=== PATIENT | male | born 1975 | race Caucasian/White ===

== ENCOUNTER 2017-01-21 07:27 | Emergency (ER) | payer SELFPAY ==
[~2017-01-21] VITALS: Ht 175.3 cm; Wt 122.5 kg
[2017-01-21 07:43] VITALS: BP 188/114
[2017-01-21 07:44] LABS: BILIRUBIN,URINE NEGATIVE (NEG); GLUCOSE,URINE 100 mg/dL (NEG); NITRITE,URINE NEGATIVE (NEG); PROTEIN,URINE 100 mg/dL (NEG-TRACE); UROBILINOGEN,URINE 0.2 mg/dL (0.2 mg/dL)
[2017-01-21] MEDS ORDERED: IV NORMAL SALINE 1000ML BAG 1,000 ML IV ONE (07:45)
[2017-01-21] MEDS ORDERED: HYDROmorphone 2 MG/ML VIAL IV ONE (07:45)
[2017-01-21] MEDS ORDERED: ONDANSETRON PF 4 MG/2 ML VIAL. IV ONE ×2 (07:45→08:45)
--- NOTE | 2017-01-21 07:46 | PHYS DOC ---
Adult General Chief Complaint Chief Complaint: FLANK PAIN HPI HPI Patient is a 41 year old male with history of kidney stones who presents today with 15 out of 10 left flank pain that began yesterday. Patient is also complaining of nausea and vomiting since this morning. Patient denies any hematuria. Patient denies any fever. He states he normally follows up with his own doctor in [facility]. Review of Systems Review of Systems Constitutional: Denies fever or chills [] Eyes: Denies change in visual acuity, redness, or eye pain [] HENT: Denies nasal congestion or sore throat [] Respiratory: Denies cough or shortness of breath [] Cardiovascular: No additional information not addressed in HPI [] GI: Denies abdominal pain, nausea, vomiting, bloody stools or diarrhea [] : left flank pain Musculoskeletal: Denies back pain or joint pain [] Integument: Denies rash or skin lesions [] Neurologic: Denies headache, focal weakness or sensory changes [] Endocrine: Denies polyuria or polydipsia [] Current Medications Current Medications Current Medications Medications (Trade) Dose Ordered Sig/Fanny Start Time Stop Time Status Last Admin Dose Admin Hydromorphone HCl (Dilaudid) 2 mg 1X ONCE 01/21/17 07:45 01/21/17 07:50 DC 01/21/17 07:54 2 MG Ketorolac Tromethamine (Toradol) 30 mg 1X ONCE 01/21/17 08:45 01/21/17 08:46 DC 01/21/17 08:52 30 MG Ondansetron HCl (Zofran) 4 mg 1X ONCE 01/21/17 08:45 01/21/17 08:46 DC 01/21/17 08:56 4 MG Prochlorperazine Edisylate (Compazine) 10 mg 1X ONCE 01/21/17 08:45 01/21/17 08:46 DC 01/21/17 08:51 10 MG Sodium Chloride 1,000 ml @ 1,000 mls/hr 1X ONCE 01/21/17 07:45 01/21/17 08:44 DC 01/21/17 07:45 1,000 MLS/HR Tamsulosin HCl (Flomax) 0.4 mg 1X ONCE 01/21/17 08:45 01/21/17 08:46 DC 01/21/17 08:52 0.4 MG Allergies Allergies Allergies Coded Allergies Type Severity Reaction Last Updated Verified No Known Drug Allergies 01/21/17 No Physical Exam Physical Exam Constitutional: Well developed, well nourished, no acute distress, non-toxic appearance. [] HENT: Normocephalic, atraumatic, bilateral external ears normal, oropharynx moist, no oral exudates, nose normal. [] Eyes: PERRLA, EOMI, conjunctiva normal, no discharge. [] Neck: Normal range of motion, no tenderness, supple, no stridor. [] Cardiovascular:Heart rate regular rhythm, no murmur [] Lungs & Thorax: Bilateral breath sounds clear to auscultation [] Abdomen: Bowel sounds normal, soft, no tenderness, no masses, no pulsatile masses. [] Skin: Warm, dry, no erythema, no rash. [] Back: No tenderness, moderate left CVA tenderness. [] Extremities: No tenderness, no cyanosis, no clubbing, ROM intact, no edema. [] Neurologic: Alert and oriented X 3, normal motor function, normal sensory function, no focal deficits noted. [] Psychologic: Affect normal, judgement normal, mood normal. [] Current Patient Data Vital Signs Vital Signs Date Time Temp Pulse Resp B/P (MAP) Pulse Ox O2 Delivery O2 Flow Rate FiO2 01/21/17 07:54 18 01/21/17 07:43 99.0 107 188/114 (138) 97 Room Air 99.0 Lab Values Laboratory Tests Test 01/21/17 07:34 01/21/17 07:40 Urine Collection Type Void Urine Color Yellow Urine Clarity Clear Urine pH 6.0 Urine Specific [place] 1.025 Urine Protein 100 mg/dL (NEG-TRACE) Urine Glucose (UA) 100 mg/dL (NEG) Urine Ketones (Stick) Negative mg/dL (NEG) Urine Blood Small (NEG) Urine Nitrite Negative (NEG) Urine Bilirubin Negative (NEG) Urine Urobilinogen Dipstick 0.2 mg/dL (0.2 mg/dL) Urine Leukocyte Esterase Negative (NEG) Urine RBC 3-5 /HPF (0-2) Urine WBC Occ /HPF (0-4) Urine Squamous Epithelial Cells Occ /LPF Urine Bacteria 0 /HPF (0-FEW) Urine Mucus Mod /LPF White Blood Count 12.0 x10^3/uL (4.0-11.0) H Red Blood Count 5.37 x10^6/uL (4.30-5.70) Hemoglobin 16.0 g/dL (13.0-17.5) Hematocrit 48.4 % (39.0-53.0) Mean Corpuscular Volume 90 fL (79-100) Mean Corpuscular Hemoglobin 30 pg (25-35) Mean Corpuscular Hemoglobin Concent 33 g/dL (31-37) Red Cell Distribution Width 14.1 % (11.5-14.5) Platelet Count 239 x10^3/uL (140-400) Neutrophils (%) (Auto) 68 % (31-73) Lymphocytes (%) (Auto) 23 % (24-48) L Monocytes (%) (Auto) 7 % (0-9) Eosinophils (%) (Auto) 1 % (0-3) Basophils (%) (Auto) 1 % (0-3) Neutrophils # (Auto) 8.2 x10^3uL (1.8-7.7) H Lymphocytes # (Auto) 2.8 x10^3/uL (1.0-4.8) Monocytes # (Auto) 0.8 x10^3/uL (0.0-1.1) Eosinophils # (Auto) 0.2 x10^3/uL (0.0-0.7) Basophils # (Auto) 0.1 x10^3/uL (0.0-0.2) Sodium Level 140 mmol/L (136-145) Potassium Level 4.0 mmol/L (3.5-5.1) Chloride Level 102 mmol/L (98-107) Carbon Dioxide Level 27 mmol/L (21-32) Anion Gap 11 (6-14) Blood Urea Nitrogen 10 mg/dL (8-26) Creatinine 1.0 mg/dL (0.7-1.3) Estimated GFR (Cockcroft-Gault) 81.6 BUN/Creatinine Ratio 10 (6-20) Glucose Level 183 mg/dL (70-99) H Calcium Level 8.7 mg/dL (8.5-10.1) Total Bilirubin 0.5 mg/dL (0.2-1.0) Aspartate Amino Transferase (AST) 65 U/L (15-37) H Alanine Aminotransferase (ALT) 96 U/L (16-63) H Alkaline Phosphatase 119 U/L (46-116) H Total Protein 8.4 g/dL (6.4-8.2) H Albumin 3.6 g/dL (3.4-5.0) Albumin/Globulin Ratio 0.8 (1.0-1.7) L Lipase 261 U/L (73-393) Laboratory Tests 01/21/17 07:40 Laboratory Tests 01/21/17 07:40 EKG EKG [] Radiology/Procedures Radiology/Procedures []PROCEDURE: CT ABDOMEN PELVIS WO CONTRAST CT of the abdomen and pelvis without contrast, 01/21/2017: History: Left flank pain, kidney stones Noncontrast scans were obtained through the urinary tract utilizing the renal stone protocol. This is a limited study for evaluation of the possibility of urinary tract calculi. There are several small intrarenal calculi, more numerous on the left. The largest of these on the left measures approximately 5-6 mm. The right renal collecting system and right ureter are not dilated. There is mild dilatation of the left renal pelvis and the proximal left ureter. This is due to a 3 mm calculus in the proximal left ureter lodged at the L3-4 level. The distal left ureter is unremarkable. There is mild left perinephric edema. The urinary bladder is collapsed and not adequately defined. The liver is of lower than normal density compatible with fatty change. The gallbladder is unremarkable. No pancreatic abnormality is seen. The spleen is of normal size. Several prostatic calcifications are noted. No abdominal or pelvic adenopathy is seen. The bowel loops are not dilated. No free fluid or free air is evident in the abdomen or pelvis. The inguinal rings are mildly dilated, containing only fat. No bowel herniation is evident. There are moderate scattered degenerative changes in the spine. IMPRESSION: 1. Small bilateral intrarenal calculi. 2. Small obstructing calculus in the proximal left ureter. 3. Hepatic steatosis PQRS Compliance Statement: One or more of the following individualized dose reduction techniques were utilized for this examination: 1. Automated exposure control 2. Adjustment of the mA and/or kV according to patient size 3. Use of iterative reconstruction technique DICTATED and SIGNED BY: FORREST VERA MD DATE: 01/21/17 0818 CC: MACI WALLER APRN; ABDI SHIRLEY MD ~ Course & Med Decision Making Course & Med Decision Making Pertinent Labs and Imaging studies reviewed. (See chart for details) This is a 41-year-old male patient with history of kidney stones who presents today with left flank pain that began yesterday and nausea with vomiting since this morning. Urine positive for small amount of blood, no infection. CBC with a WBC of 12.0. CMP with AST of 65, ALT of 96, alkaline phosphate of 119. CT of the abdomen and pelvic was noted for small amount of bilateral intrarenal calculi, small obstructing calculus in the left proximal ureter and hepatic stenosis. Patient requested to follow-up with his own doctor at [facility]. He was given Flomax, Toradol and Dilaudid Zofran and Compazine in the ED. He states is feeling better. He was discharged with oxycodone, Flomax, Zofran, urine was sent for culture and he was put on Cipro. He was provided return precautions and discharged in stable condition. Dragon Disclaimer Dragon Disclaimer This electronic medical record was generated, in whole or in part, using a voice recognition dictation system. Departure Departure Impression: Primary Impression: Left flank pain Additional Impression: Renal calculi Disposition: 01 HOME, SELF-CARE Condition: STABLE Patient Instructions: Kidney Stones, [id number] Additional Instructions: You were seen for left flank pain with kidney stones we put you on antibiotics prophylaxis. Complete them. Follow-up with your doctor at [facility] in the next 7 days. Come back to the ED if symptoms worsen. Scripts Oxycodone/Apap 5-325 (PERCOCET 5-325 MG TABLET) 1 Each Tablet 1-2 TAB PO Q4-6HRS, #25 TAB Prov: MACI WALLER APRN 01/21/17 Ciprofloxacin Hcl (CIPRO) 500 Mg Tablet 1 TAB PO BID, #14 TAB Prov: MACI WALLER APRN 01/21/17 Ondansetron (ZOFRAN ODT) 4 Mg Tab.rapdis 1 TAB SL Q8HRS, #15 TAB Prov: MACI WALLER APRN 01/21/17 Tamsulosin Hcl (FLOMAX) 0.4 Mg Cap.er.24h 1 CAP PO DAILY, #7 CAP 11 Refills Prov: MACI WALLER APRN 01/21/17 Problem Qualifiers MACI WALLER APRN Jan 21, 2017 07:46
[2017-01-21 07:55] LABS: SQUAMOUS EPITHELIAL CELL,UR OCC /LPF
[2017-01-21 07:56] LABS: BACTERIA,URINE 0 /HPF (0-FEW); WBC,URINE OCC /HPF (0-4)
[2017-01-21 08:03] LABS: BASO # 0.1 x10^3/uL (0.0-0.2); BASO % 1 % (0-3); EOS % 1 % (0-3); HEMATOCRIT 48.4 % (39.0-53.0); LYMPH # 2.8 x10^3/uL (1.0-4.8); LYMPH % 23 % (24-48); MEAN CORPUSCULAR HEMOGLOBIN 30 pg (25-35); MEAN CORPUSCULAR HGB CONC 33 g/dL (31-37); MEAN CORPUSCULAR VOLUME 90 fL (79-100); MONO % 7 % (0-9); NEUT % 68 % (31-73); PLATELET COUNT 239 x10^3/uL (140-400); RED BLOOD COUNT 5.37 x10^6/uL (4.30-5.70); RED CELL DISTRIBUTION WIDTH 14.1 % (11.5-14.5)
[2017-01-21 08:18] LABS: CALCIUM 8.7 mg/dL (8.5-10.1); GFR 81.6
[2017-01-21 08:24] LABS: ALBUMIN 3.6 g/dL (3.4-5.0); ALBUMIN/GLOBULIN RATIO 0.8 (1.0-1.7); TOTAL BILIRUBIN 0.5 mg/dL (0.2-1.0); TOTAL PROTEIN 8.4 g/dL (6.4-8.2)
--- NOTE | 2017-01-21 08:28 | RAD ---
CT of the abdomen and pelvis without contrast, 01/21/2017: History: Left flank pain, kidney stones Noncontrast scans were obtained through the urinary tract utilizing the renal stone protocol. This is a limited study for evaluation of the possibility of urinary tract calculi. There are several small intrarenal calculi, more numerous on the left. The largest of these on the left measures approximately 5-6 mm. The right renal collecting system and right ureter are not dilated. There is mild dilatation of the left renal pelvis and the proximal left ureter. This is due to a 3 mm calculus in the proximal left ureter lodged at the L3-4 level. The distal left ureter is unremarkable. There is mild left perinephric edema. The urinary bladder is collapsed and not adequately defined. The liver is of lower than normal density compatible with fatty change. The gallbladder is unremarkable. No pancreatic abnormality is seen. The spleen is of normal size. Several prostatic calcifications are noted. No abdominal or pelvic adenopathy is seen. The bowel loops are not dilated. No free fluid or free air is evident in the abdomen or pelvis. The inguinal rings are mildly dilated, containing only fat. No bowel herniation is evident. There are moderate scattered degenerative changes in the spine. IMPRESSION: 1. Small bilateral intrarenal calculi. 2. Small obstructing calculus in the proximal left ureter. 3. Hepatic steatosis PQRS Compliance Statement: One or more of the following individualized dose reduction techniques were utilized for this examination: 1. Automated exposure control 2. Adjustment of the mA and/or kV according to patient size 3. Use of iterative reconstruction technique
[2017-01-21] MEDS ORDERED: PROCHLORPERAZINE 10 MG/2 ML VIAL. IV ONE (08:45)
[2017-01-21] MEDS ORDERED: KETOROLAC TROMETHAMINE 30 MG/ML INJ. IV ONE (08:45)
[2017-01-21] MEDS ORDERED: TAMSULOSIN 0.4 MG CAP.ER.24H. PO ONE (08:45)
[2017-01-21] MEDS ORDERED: CIPR500T94 PO (09:12)
[2017-01-21] MEDS ORDERED: TAMS0.4C97 PO (09:12)
[2017-01-21] MEDS ORDERED: ONDA4TAB10 SL (09:12)
[2017-01-21] MEDS ORDERED: OXYC-323 PO (09:12)
== END 2017-01-21 09:47 | disposition home or self-care (01) ==
LOC: ER 07:27
DX: N20.0 Calculus of kidney (principal)
CPT/HCPCS: 36415; 74176; 80053; 81001; 83690; 85027; 96361; 96374; 96375; 96376; 99285; J0780; J1170; J1885; J2405; J7030

== ENCOUNTER 2021-07-05 06:28 | Emergency (ER) | payer BC ==
[~2021-07-05] VITALS: Ht 175.3 cm; Wt 118.0 kg
[~2021-07-05 06:28] MED LIST: CIPR500T94 PO; ONDA4TAB10 SL; OXYC1TAB15 PO; TAMS0.4C97 PO
--- NOTE | 2021-07-05 07:01 | PHYS DOC ---
Past Medical History Past Medical History: Diabetes-Type I, Hypertension, Kidney Stone Past Surgical History: Appendectomy, Other (RIGHT ACHILLES TENDON SURGERY) Smoking Status: Never Smoker Alcohol Use: None Drug Use: None General Adult EDM: Chief Complaint: CARDIAC ARREST HPI: HPI: Patient is a 45 year old male who was brought here by EMS from home due to cardiac arrest. Per report, patient had right Achilles tendon surgery done at [facility] on last Saturday. Patient has been staying at his mother's house. It was reported that patient started having trouble breathing and feeling dizzy, lightheaded yesterday afternoon. Patient got up to use the toilet this morning when he collapsed in the bathroom. EMS were called, they found him unresponsive on the floor, no signs of head injury, patient was in asystole. They proceeded with CPR per ACLS protocol, they placed a Laila airway, they placed an IO on right proximal tibia area. Patient was resuscitated by EMS for about 45 minutes prior to arrival to the ER. No ROSC per EMS. Patient does have a history of diabetes, hypertension. They checked his blood sugar and it was 155. Review of Systems: Review of Systems: NOT ABLE TO OBTAINED DUE TO CONDITION Heart Score: C/O Chest Pain: N/A Risk Factors: Risk Factors: DM, Current or recent (<one month) smoker, HTN, HLP, family history of CAD, obesity. Risk Scores: Score 0 - 3: 2.5% MACE over next 6 weeks - Discharge Home Score 4 - 6: 20.3% MACE over next 6 weeks - Admit for Clinical Observation Score 7 - 10: 72.7% MACE over next 6 weeks - Early Invasive Strategies Allergies: Allergies: Allergies Coded Allergies Type Severity Reaction Last Updated Verified No Known Drug Allergies 01/21/17 No Physical Exam: PE: Constitutional: Well developed, well nourished, COMATOSE. HENT: Normocephalic, atraumatic, bilateral external ears normal, oropharynx moist, LAILA AIRWAY IN PLACE. Eyes: PUPILS ARE FIXED, DILATED 7 MM BILATERALLY. NONREACTIVE. Neck: NO JVD, TRACHEA MIDLINE, NO CREPITUS. Cardiovascular:IN ASYSTOLE, NO CARDIAC ACTIVITY, NO PULSE. Lungs & Thorax: Bilateral breath sounds clear to auscultation BY BAGGING. Abdomen: MILDLY DISTENDED, NO MASS, NO INJURY. Skin: CYANOTIC, COLD TO TOUCH. Back: ATRAUMATIC. Extremities: RIGHT LEG IN SHORT LEG SPLINT, IO DEVICE JUST BELOW RIGHT KNEE. Neurologic: COMATOSE, NO RESPONSIVE TO PAIN OR VERBAL STIMULI. Psychologic: NOT ABLE TO EVALUATE DUE TO CONDITION. EKG: EKG: [] Radiology/Procedures: Radiology/Procedures: Indication: Respiratory failure/cardiac arrest Consent: Unable to give consent due to emergent nature. Medications Used: No medication used Procedure: The patient was placed in the appropriate position. Intubation was performed using glidescope, cord visualization method, ET TUBE SIZE # 7.5, SECURED AT 22 CM AT TEETH, ET SECURED WITH TUBE MEDINA. Initial confirmation of placement included bilateral breath sounds, tube fogging, adequate chest rise, adequate pulse oximetry reading. The procedure was done during CPR process. Complications: none. Course & Med Decision Making: Course & Med Decision Making Pertinent Labs and Imaging studies reviewed. (See chart for details) Patient is a 45-year-old male who was brought in by EMS from home in cardiac arrest. Total time EMS resuscitation was 45 minutes. Patient was in asystole the whole time per EMS REPORT. Upon arrival to ER patient was in asystole. Patient was resuscitated for another 25 minutes in the ED per ACLS protocol, no ROSC achieved. Patient was pronounced by this physician at 6:54 AM on July 05, 2021. Suspect cause of : Massive pulmonary embolus. Family included daughter and mother were notified. Dragon Disclaimer: Dragon Disclaimer: This electronic medical record was generated, in whole or in part, using a voice recognition dictation system. Departure Departure Impression: Primary Impression: Cardiac arrest Disposition: 20 (at 6:54 am) Condition: Referrals: ABDI SHIRLEY MD (PCP) RAYMOND KERR DO Jul 05, 2021 07:01
[2021-07-05] MEDS ORDERED: SODIUM BICARB ADULT 8.4% 50 MEQ/50 ML DISP.SYRIN. ONE (17:21)
[2021-07-05] MEDS ORDERED: EPINEPHrine SYRINGE 1 MG/10 ML SYRINGE. ONE (17:21)
[2021-07-05] MEDS ORDERED: NALOXONE 0.4 MG/ML VIAL. ONE (17:21)
== END 2021-07-05 10:23 ==
LOC: ER 06:28
DX: I46.9 Cardiac arrest, cause unspecified (principal); E10.9 Type 1 diabetes mellitus without complications; I10 Essential (primary) hypertension
CPT/HCPCS: 31500; 92950; 99291; J0171; J2310; J3490